=== PATIENT | male | born 1950 | race Caucasian/White ===

== ENCOUNTER 2017-06-30 17:53 | Emergency (ER) | payer OTHER ==
[2017-06-30] MEDS ORDERED: ZOFRAN INJ 4 MG VIAL IM ONE (18:03)
[2017-06-30] MEDS ORDERED: MORPHINE SULFATE INJ 4 MG IM ONE (18:03)
[2017-06-30] MEDS ORDERED: ZOFRAN INJ 4 MG VIAL ONE (18:03)
[2017-06-30] MEDS ORDERED: MORPHINE SULFATE INJ 4 MG ONE (18:03)
--- NOTE | 2017-06-30 18:07 | DR.EXTPAIN ---
HPI - Time seen Time seen: 18:00 - PCP Primary Care Physician: CRYS HOPPER - HPI Comment HPI Comment: NO LOC, PELVIC PAIN OR SOB. DENIES NECK PAIN. ABRSION RIGHT POSTERIOR ELBOW. TD UTD. PATIENT TAKES ASPRIN. - Complaint/Symptoms Chief Complaint Doctor Comments: FELL OFF ROOF, 10 FEET AND HIT RIGHT UPPER EXTREMITY. COMPLAINING OF RIGHT ARM PAIN AND SHOULDER. Chief Complaint:: PT WAS FIXING A ROOF WITH HIS SON AND HE FELL THREW THE RAFTERS AT ABOUT 10 FEET AND HE HIT THE GROUND ON HIS RIGHT SHOULDER . PT IS GUARDING HIS RIGHT ARM EDEMA NOTED TO PTS RIGHT HUMEROUS AREA, - Nurses notes reviewed Nurses Notes Review: Yes - Source History Provided: Patient - Mode of arrival Mode of Arrival: Wheelchair - Timing Onset of Chief Complaint: 06/30/17 - Context History of: None - Associated signs and symptoms Associated Signs and Symptoms: Pain, Bruising (ABRASION RT POST ELBOW.) PMH - PMH Past Medical History: Yes Past Medical History: GERD Past Medical History Comment: HIGH CHOLESTEROL Past Surgical History: No - Family History History of Family Medical Conditions: No - Social History Does patient currently use any type of tobacco product: No Have you used tobacco products in the last 12 months: No Type of Tobacco Use: None Does any household member use tobacco: No Alcohol Use: None Do you use any recreational Drugs:: No Lives With: Family Lives Where: Home - infectious screening In the last 2 months have you had wt loss of >10#?: NO Have you had fever, night sweats or hemotysis?: No Have you traveled outside the country in the last 6 months?: No Isolation: Standard ROS - Review of Systems Constitutional: No Symptoms Reported. negative: Chills, Fever, Weakness, Fatigue Eyes: No Symptoms Reported. negative: Eye Pain, Discharge ENTM: No Symptoms Reported. negative: Ear Pain, Nose Discharge, Nose Congestion , Throat Pain Respiratoy: No Symptoms Reported. negative: Productive Cough, Non-Productive Cough, Short of Breath, Wheezing, Hemoptysis Cardiovascular: No Symptoms Reported Gastrointestinal/Abdominal: No Symptoms Reported. negative: Abdominal Pain, Nausea, Vomiting Genitourinary: No Symptoms Reported. negative: Dysuria, Frequency, Hematuria Neurological: No Symptoms Reported. negative: Headache, Weakness, Dizziness Musculoskeletal: Muscle Pain, Right, Shoulder, Arm, Elbow Integumentary: Change in Color (ABRASION RIGHT ELBOW) Hematologic/Lymphatic: Easy Bleeding, Easy Bruising Endocrine: No Symptoms Reported All Other Systems: Reviewed and Negative PE - Vital Signs Vitals: Pulse Rate [Left Brachial] 77 Pulse Rate 95 Respiratory Rate 16 Blood Pressure [Left Arm] 136/86 Blood Pressure 177/113 O2 Sat by Pulse Oximetry 96 - General Limitations: No Limitations General Appearance: Alert - Head Head Exam: Normal Inspection - Eyes Eye exam: Normal Appearance, PERRL, EOMI. negative: Scleral Icterus, Conjunctival Injection, Nystagmus, Miosis, Mydrasis, Periorbital Swelling, Periorbital Tenderness - ENT ENT Exam: Normal External Ear Exam - Neck Neck Exam: Trachea Midline. negative: Tenderness, Meningismus, Lymphadenopathy - Chest Chest Inspection: Symmetric Chest Wall Rise - Respiratory Respiratory Exam: Normal Lung Sounds Bilat Respiratory Exam: Bilateral Clear to Auscultation - Cardiovascular Cardiovascular Exam: Regular Rate, Normal Rhythm, Normal Heart Sounds - Abdominal Exam Abdominal Exam: Normal Bowel Sounds, Soft. negative: Tenderness - Extremities Extremities Exam: Tenderness (RIGHT ELBOW AND ARM TENDERNESS WITH RT ELBOW ABRASION. ROM IN DEACREASE.) - Upper Extremities Shoulder Exam: Tenderness. negative: Full ROM, Swelling Arm Exam: Tenderness, Swelling. negative: Full ROM Elbow Exam: Tenderness, Abrasion Forearm Exam: Tenderness (UPPER FOREARM.) - Lower Extremities Neurovascular/Tendon Exam: Normal Capillary Refill Gait Exam: Observed and Normal - Back Back Exam: Normal Inspection - Neurological Neurological Exam: Alert, Oriented X3 - Skin Skin Exam: Erythema Type of Lesion: Abrasion MDM - Differential Diagnosis Differential Diagnosis: Abrasion, Contusion, Fracture, Sprain Course - Treatment Treatment: SEE ORDERS. - Consultation Consultation Comments: DISCUSS PATIENT WITH DR. GONZALEZ. HE WILL SEE PATIENT TOMORROW IN HIS OFFICE. - Education/Counseling Education/Counseling: Patient, Family, Education Educated On: Treatment, Diagnosis, Needs for Follow Up ROR - XRAY XRAY Interpreted by: Radiologist XRAY Findings: REPORT DISCUSS WITH PATIEN - Diagnosis Discharge Problem: Fracture, humerus closed, shaft Qualifiers: Encounter type: initial encounter Fracture morphology: comminuted Fracture alignment: displaced Laterality: right Qualified Code(s): S42.351A - Displaced comminuted fracture of shaft of humerus, right arm, initial encounter for closed fracture Fall Qualifiers: Encounter type: initial encounter Qualified Code(s): W19.XXXA - Unspecified fall, initial encounter - Discharge Plan Disposition: HOME, SELF-CARE Condition: Stable Prescriptions: Oxycodone HCl/Acetaminophen [Percocet 10-325 mg Tablet] 1 each PO Q6H PRN #15 tablet PRN Reason: - Follow ups/Referrals Follow ups/Referrals: CRYS HOPPER [Primary Care Provider] - 3 days BRIDGETT GONZALEZ [STAFF PHYSICIAN] - 07/01/17 - Instructions Instructions: Humerus Fracture With Rehab[facility] Additional Instructions: RETURN TO ED IF WORSE. SEE DR. GONZALEZ AT 13:00PM TOMORROW. CALL NUMBER TO HIS OFFICE TO CONFIRM.
[2017-06-30 18:11] VITALS: BMI 27.8
--- NOTE | 2017-06-30 18:40 | RAD ---
HISTORY: Trauma, pain after fall Study: Single view chest Comparison: None Findings: The lungs are clear without consolidation, effusion or pneumothorax. The cardiac and mediastinal con tours are within normal limits. The soft tissues are unremarkable. IMPRESSION: 1. No acute cardiopulmonary abnormality. Reported By:
--- NOTE | 2017-06-30 18:42 | RAD ---
HISTORY: Trauma, pain after fall onto concrete floor Study: Single-view pelvis Comparison: None Findings: Normal alignment. No acute fracture or dislocation. The soft tissues are unremarkable. Portion of th e proximal right femur is not included in the field of view. IMPRESSION: 1. No acute osseous abnormality. Reported By:
--- NOTE | 2017-06-30 18:48 | RAD ---
HISTORY: Pain after falling onto concrete floor Study: Two views of the right humerus Comparison: None Findings: There is a transverse mildly comminuted fracture through the midshaft of the right humerus with mild fragment separation. The shoulder joint appears intact. The visualized thorax and soft tissues are un remarkable. IMPRESSION: 1. Transverse, mildly comminuted fracture through the midshaft of the right humerus. Reported By:
[2017-06-30 18:56] VITALS: BP 136/86
[2017-06-30] MEDS ORDERED: PERCOCET TAB 5/325 MG ONE (18:56)
[2017-06-30] MEDS ORDERED: PERCOCET TAB 5/325 MG PO ONE (19:00)
== END 2017-06-30 20:05 | disposition home or self-care (01) ==
LOC: ER 18:02
DX: S42.351A Displaced comminuted fracture of shaft of humerus, right arm, initial encounter for closed fracture (principal); W19.XXXA Unspecified fall, initial encounter; Y92.9 Unspecified place or not applicable
CPT/HCPCS: 29105; 71010; 72170; 73060; 96372; 99282; 99283; J2270; J2405

== ENCOUNTER → 2017-07-06 | Outpatient (CLI) | payer OTHER ==
[2017-06-30 18:56] VITALS: BP 136/86
--- NOTE | 2017-07-06 11:39 | RAD ---
HISTORY: Preoperative exam for humerus surgery Study: Two views of each Comparison: June 30, 2017 Findings: The trachea is midline. The cardiac silhouette is unremarkable. The lungs are clear without focal i nfiltrate or effusion. The aorta is partially calcified and tortuous. A displaced humeral fracture is noted on the lateral view. The lateral view is limited due to overlying soft tissues and bony str uctures. IMPRESSION: 1. No acute cardiopulmonary disease. 2. Displaced humeral fracture noted on the lateral view. Reported By:
[2017-07-06 12:09] LABS: BILIRUBIN,URINE NEGATIVE (NEGATIVE); BLOOD/HEMOGLOBIN,URINE NEGATIVE (NEGATIVE); GLUCOSE, URINE NEGATIVE (NEGATIVE); KETONES,URINE NEGATIVE (NEGATIVE); LEUKOCYTE ESTERASE ,URINE NEGATIVE (NEGATIVE); NITRITES,URINE NEGATIVE (NEGATIVE); PH,URINE 6.5 (5.0 - 8.0); PROTEIN,URINE NEGATIVE (NEGATIVE); UROBILINOGEN,URINE NORMAL (NORMAL)
[2017-07-06 12:10] LABS: BASOPHILS % (AUTO) 0.7 % (0.2-1.0); EOSINOPHILS # (AUTO) 0.3 x10^3/uL (0.0-0.2); HEMATOCRIT 39.1 % (42.0-54.0); HEMOGLOBIN 13.1 g/dL (13.5-18.0); LYMPHOCYTES # (AUTO) 1.1 X10^3/uL (1.3-2.9); LYMPHOCYTES % (AUTO) 20.2 % (21.0-51.0); MEAN CORPUSCULAR HEMOGLOBIN 30.1 pg (27.0-34.0); MEAN CORPUSCULAR HGB CONC 33.4 g/dL (33.0-35.0); MEAN CORPUSCULAR VOLUME 90.1 fL (80.0-100.0); MEAN PLATELET VOLUME 8.4 fL (7.4-11.0); MONOCYTES # (AUTO) 0.6 x10^3/uL (0.3-0.8); MONOCYTES % (AUTO) 10.8 % (0.0-13.0); NEUTROPHILS # (AUTO) 3.5 x10^3/uL (2.2-4.8); NEUTROPHILS % (AUTO) 63.3 % (42.0-75.0); PLATELET COUNT 186 X10^3/uL (150.0-450.0); RED BLOOD COUNT 4.35 X10^6/uL (4.7-6.0); RED CELL DISTRIBUTION WIDTH 14.2 % (11.6-16.5); WHITE BLOOD COUNT 5.5 X10^3/uL (3.6-10.0)
[2017-07-06 12:15] LABS: APPEARANCE,URINE CLEAR (CLEAR); COLOR,URINE YELLOW (YELLOW)
[2017-07-06 12:17] LABS: BACTERIA,URINE NEGATIVE /HPF (NEGATIVE); RBC,URINE NONE SEEN /HPF (NEGATIVE); SQUAMOUS EPITHELIAL CELL,UR RARE /HPF (NEGATIVE)
[2017-07-06 12:20] LABS: ALANINE AMINOTRANSFERASE 75 Units/L (12-78); ALBUMIN 3.3 g/dL (3.4-5.0); ALKALINE PHOSPHATASE 113 Units/L (46-116); ASPARTATE AMINO TRANSFERASE 51 Units/L (15-37); BLOOD UREA NITROGEN 16 mg/dL (7-18); CALCIUM 8.8 mg/dL (8.5-10.1); CARBON DIOXIDE 29.9 mmol/L (21-32); CHLORIDE 103 mmol/L (98-107); COR CA(FOR HYPOALB) 9.4 mg/dL (8.5-10.1); CREATININE 1.03 mg/dL (0.70-1.30); SODIUM 138 mmol/L (136-145); TOTAL PROTEIN 7.5 g/dL (6.4-8.2); eGFR BLACK RACES > 60 (>60); eGFR NON BLACK RACES > 60 (>60)
== END ==
LOC: LAB 11:09
PROVIDERS: ATTEND Orthopaedic Surgery
DX: S42.351A Displaced comminuted fracture of shaft of humerus, right arm, initial encounter for closed fracture (principal); X58.XXXA Exposure to other specified factors, initial encounter
CPT/HCPCS: 36415; 71020; 80053; 81001; 85025; 85610; 85730; 87641; 93005; 93010

== ENCOUNTER 2017-07-07 07:32 | Day surgery (SDC) | payer OTHER ==
[2017-07-07] MEDS ORDERED: BACTROBAN OINT ONE (07:40)
[2017-07-07] MEDS ORDERED: VANCOMYCIN HCL 1 GM VIAL ONE (07:48)
[2017-07-07] MEDS ORDERED: LR 1000 ML IV 1,000 ML IV ONE ×2 (07:48→10:17)
[2017-07-07] MEDS ORDERED: NS 100 ML IV 100 ML IV ONE ×2 (07:55→08:09)
[2017-07-07] MEDS ORDERED: FENTANYL INJ 250 mcg ONE (08:07)
[2017-07-07] MEDS ORDERED: MARCAINE 0.25% INJ ONE (08:41)
[2017-07-07] MEDS ORDERED: NS IRRIGATION 1000 ML 1,000 ML with BACITRACIN VIAL 50,000 UNT IR ONE ×2 (09:40)
[2017-07-07] MEDS ORDERED: PERCOCET TAB 5/325 MG PO PRN (11:58)
[2017-07-07] MEDS ORDERED: ZOFRAN INJ 4 MG VIAL IVP PRN ×2 (11:58→12:12)
[2017-07-07] MEDS ORDERED: PHENERGAN INJ 25 MG IVP PRN (12:12)
[2017-07-07] MEDS ORDERED: REGLAN INJ 10 MG VIAL IVP PRN (12:12)
[2017-07-07] MEDS ORDERED: BENADRYL INJ 50 MG VIAL IVP PRN (12:12)
[2017-07-07] MEDS ORDERED: NAROPIN 0.75% ONE (12:21)
[2017-07-07] MEDS ORDERED: XYLOCAINE 2 % (PLAIN) ONE ×2 (12:21→15:33)
[2017-07-07] MEDS: DILAUDID INJ IVP PRN ×2 (12:27→12:32)
--- NOTE | 2017-07-07 12:49 | RAD ---
HISTORY: Right humerus fracture, postop Study: Right humerus AP and ladder Comparison: June 30, 2017 Findings: The previously noted comminuted mid humeral shaft fracture has undergone open reduction internal fixa tion with a long intra medullary santosh. Position and alignment is nearly anatomic. Position alignment i s improved when compared with the prior examination peer E IMPRESSION: Status post successful open reduction, internal fixation comminuted mid humeral shaft fracture Reported By:
[2017-07-07] MEDS ORDERED: DILAUDID INJ ONE (13:22)
[2017-07-07] MEDS ORDERED: DYLOJECT INJ ONE (13:22)
[2017-07-07 14:32] VITALS: BP 120/79
[2017-07-07] MEDS ORDERED: NEOSTIGMINE INJ ONE (15:33)
[2017-07-07] MEDS ORDERED: DIPRIVAN VIAL ONE (15:33)
[2017-07-07] MEDS ORDERED: QUELICIN (OR ANECTINE) ONE (15:33)
[2017-07-07] MEDS ORDERED: ZOFRAN INJ 4 MG VIAL ONE (15:33)
[2017-07-07] MEDS ORDERED: SUPRANE IN ONE (15:33)
[2017-07-07] MEDS ORDERED: EPHEDRINE SULFATE INJ ONE (15:33)
[2017-07-07] MEDS ORDERED: ROBINUL ONE (15:33)
[2017-07-07] MEDS ORDERED: NORCURON INJ 10 MG VIAL ONE (15:33)
[2017-07-07] MEDS ORDERED: VERSED ONE (15:33)
== END 2017-07-07 15:10 | disposition home or self-care (01) ==
LOC: SURG1 07:32
PROVIDERS: ATTEND Orthopaedic Surgery
PROC: 0PSF06Z Reposition Right Humeral Shaft with Intramedullary Internal Fixation Device, Open Approach (ICD-10-PCS; principal; 2017-07-07 08:30)
DX: S42.351A Displaced comminuted fracture of shaft of humerus, right arm, initial encounter for closed fracture (principal); X58.XXXA Exposure to other specified factors, initial encounter
CPT/HCPCS: 64418; 73060; 76000; A4216; A4222; S0020; J0330; J1170; J2001; J2250; J2405; J2550; J2710; J3010; J3370; J3490; J7120